=== PATIENT | male | born 1985 | race Asian ===

== ENCOUNTER 2021-03-27 17:19 | Outpatient (CLI) | payer BC, SELFPAY ==
[2021-03-28 08:09] LABS: SARS-CoV-2 PCR by NAA Not Detected (NotDetected)
== END 2021-03-27 17:20 | disposition home or self-care (01) ==
LOC: LABBT 17:19
PROVIDERS: ATTEND Internal Medicine Gastroenterology
DX: Z01.812 Encounter for preprocedural laboratory examination (principal); R10.9 Unspecified abdominal pain; Z20.822 Contact with and (suspected) exposure to COVID-19
CPT/HCPCS: U0003; U0005

== ENCOUNTER → 2021-03-30 | Outpatient (CLI) | payer BC ==
[~2021-03-30] MED LIST: Lidocaine 1% PF 5 ML VIAL ONE; PROPOFOL 200 MG/20 ML VIAL ONE
== END ==
LOC: ULT 08:00
PROVIDERS: ATTEND Internal Medicine Gastroenterology
PROC: 0DB38ZX Excision of Lower Esophagus, Via Natural or Artificial Opening Endoscopic, Diagnostic (ICD-10-PCS; principal; 2021-03-30)
PROC: 0DB78ZX Excision of Stomach, Pylorus, Via Natural or Artificial Opening Endoscopic, Diagnostic (ICD-10-PCS; principal; 2021-03-30)
DX: K29.50 Unspecified chronic gastritis without bleeding (principal); K22.10 Ulcer of esophagus without bleeding; G89.29 Other chronic pain; R10.13 Epigastric pain; Z88.2 Allergy status to sulfonamides
CPT/HCPCS: 88305; 88312; 88342; J2704

== ENCOUNTER 2023-01-16 16:32 | Outpatient (CLI) | payer OTHER, SELFPAY | END 2023-01-16 16:33 | disposition home or self-care (01) | LOC: RAD 16:32 | PROVIDERS: ATTEND Nurse Practitioner Family | DX: R61 Generalized hyperhidrosis (principal) | CPT/HCPCS: 71046 ==

== ENCOUNTER 2023-03-18 17:41 | Emergency (ER) | payer SELFPAY | END 2023-03-18 18:42 | disposition left against medical advice (07) | LOC: ERS 17:41 | DX: Z53.21 Procedure and treatment not carried out due to patient leaving prior to being seen by health care provider (principal) ==

== ENCOUNTER 2023-03-22 07:45 | Emergency (ER) | payer BC ==
[2023-03-22 09:15] LABS: #Monocytes 0.4 thou/uL (0.11-0.59); #Neutrophils 2.4 thou/uL (1.40-6.50); %Basophils 0.2 % (0.0-1.0); %Eosinophils 0.9 % (0.0-10.0); %Monocytes 7.7 % (0.0-10.0); Hematocrit 45.3 % (42.0-52.0); Hemoglobin 14.9 g/dL (14.0-18.0); Mean Corpuscular HGB CONC 32.9 g/dL (32.0-36.0); Mean Corpuscular Hemoglobin 29.2 pg (27.0-31.0); Mean Corpuscular Volume 88.6 fl (78.0-98.0); Platelet Count 204 10x3/uL (130-400); Red Blood Cell (RBC) Count 5.11 mill/uL (4.70-6.10); White Blood Cell (WBC) Count 4.7 10x3/uL (4.8-10.8)
[2023-03-22] MEDS ORDERED: Lidocaine 2% Viscous Solution 10 ML, Aluminum & Magnesium Hydroxide 20 ML, Donnatal Eli... SSW SCH (09:30)
[2023-03-22 09:42] LABS: Troponin I Less than 0.010 ng/mL (< 0.028)
[2023-03-22 10:09] LABS: Albumin 4.7 g/dL (3.5-5.0)
[2023-03-22 10:10] LABS: Chloride 104 mmol/L (98-107); Potassium 4.3 mmol/L (3.5-5.1); Sodium 136 mmol/L (136-145)
[2023-03-22 10:11] LABS: Calcium 9.6 mg/dL (7.8-10.44)
[2023-03-22 10:12] LABS: Globulin 2.8 g/dL (2.4-3.5); Glucose 101 mg/dL (70-105); Protein, Total 7.5 g/dL (6.0-8.3)
[2023-03-22 10:13] LABS: Carbon Dioxide 27 mmol/L (22-29)
[2023-03-22 10:14] LABS: Bilirubin, Total 0.8 mg/dL (0.2-1.2)
[2023-03-22 10:15] LABS: Alkaline Phosphatase 69 U/L (40-110); Calc. Creatinine Clearance 0 mL/min (70-130); Estimated GFR 102
[2023-03-22 10:16] LABS: BUN (Urea Nitrogen) 9 mg/dL (8.9-20.6)
[2023-03-22 10:17] LABS: ALT (SGPT) 34 U/L (8-55); AST (SGOT) 22 U/L (5-34)
[2023-03-22 10:18] LABS: Lipase 14 U/L (8-78)
[2023-03-22 10:30] LABS: Anion Gap 9 mmol/L (10-20)
== END 2023-03-22 11:21 | disposition home or self-care (01) ==
LOC: ERS 07:45
DX: R07.9 Chest pain, unspecified (principal); K29.00 Acute gastritis without bleeding; E78.1 Pure hyperglyceridemia
CPT/HCPCS: 36415; 71045; 80053; 83690; 84484; 85025; 93005

== ENCOUNTER → 2023-04-30 | Day surgery (SDC) | payer BC ==
[~2023-04-30] MED LIST changes: -Lidocaine 1% PF 5 ML VIAL ONE; +Lidocaine Jelly 2% Urojet 10 ML ONE; -PROPOFOL 200 MG/20 ML VIAL ONE
== END ==
LOC: SDC 14:12
PROVIDERS: ATTEND Internal Medicine Gastroenterology
DX: K21.9 Gastro-esophageal reflux disease without esophagitis (principal); R07.9 Chest pain, unspecified; K44.9 Diaphragmatic hernia without obstruction or gangrene; K76.0 Fatty (change of) liver, not elsewhere classified; Z91.010 Allergy to peanuts; Z88.2 Allergy status to sulfonamides; Z79.899 Other long term (current) drug therapy
CPT/HCPCS: 91034; J2001

== ENCOUNTER → 2023-05-13 | Day surgery (SDC) | payer BC | LOC: SDC 13:10 | PROVIDERS: ATTEND Internal Medicine Gastroenterology | PROC: 4A0B8BZ Measurement of Gastrointestinal Pressure, Via Natural or Artificial Opening Endoscopic (ICD-10-PCS; principal; 2023-05-13) | DX: K21.9 Gastro-esophageal reflux disease without esophagitis (principal); K22.70 Barrett's esophagus without dysplasia; Z88.2 Allergy status to sulfonamides; Z91.010 Allergy to peanuts | CPT/HCPCS: 91010 ==

== ENCOUNTER 2023-05-23 11:11 | Outpatient (CLI) | payer BC | END 2023-05-23 11:12 | disposition home or self-care (01) | LOC: BICRAD 11:11 | PROVIDERS: ATTEND Physician Assistant Medical | DX: R07.9 Chest pain, unspecified (principal); K21.9 Gastro-esophageal reflux disease without esophagitis; K44.9 Diaphragmatic hernia without obstruction or gangrene | CPT/HCPCS: 71046 ==

== ENCOUNTER 2023-06-11 08:08 | Outpatient (CLI) | payer BC | END 2023-06-11 08:09 | disposition home or self-care (01) | LOC: NM 08:08 | PROVIDERS: ATTEND Physician Assistant Medical | DX: K21.9 Gastro-esophageal reflux disease without esophagitis (principal); K44.9 Diaphragmatic hernia without obstruction or gangrene; R07.9 Chest pain, unspecified | CPT/HCPCS: 78264; A9541 ==

== ENCOUNTER 2023-06-17 12:21 | Outpatient (CLI) | payer BC | END 2023-06-17 12:22 | disposition home or self-care (01) | LOC: MRI 12:21 | PROVIDERS: ATTEND Physical Therapist | DX: G43.909 Migraine, unspecified, not intractable, without status migrainosus (principal); M54.2 Cervicalgia; M51.24 Other intervertebral disc displacement, thoracic region; G89.29 Other chronic pain; M47.812 Spondylosis without myelopathy or radiculopathy, cervical region; M25.78 Osteophyte, vertebrae | CPT/HCPCS: 70551; 72141; 72146 ==

== ENCOUNTER 2023-12-29 16:00 | Outpatient (CLI) | payer BC | END 2023-12-29 16:01 | disposition home or self-care (01) | LOC: SLEEPLAB 16:00 | PROVIDERS: ATTEND Family Medicine | DX: G47.33 Obstructive sleep apnea (adult) (pediatric) (principal); K21.9 Gastro-esophageal reflux disease without esophagitis; R53.83 Other fatigue; R51.9 Headache, unspecified; R06.83 Snoring | CPT/HCPCS: 95800 ==